=== PATIENT | female | born 1930 | race Caucasian/White ===

== ENCOUNTER 2018-10-25 14:37 | Outpatient (CLI) | payer MEDICARE, BC ==
--- NOTE | 2018-10-25 15:50 | MRI ---
MRI lumbar spine noncontrast HISTORY: Low back pain with left leg radiculopathy. FINDINGS: Conus medullaris has a normal appearance. 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 M ultilevel discogenic endplate changes of the bone marrow. The leftward most sagittal T2 images partially show an oval complex cystic lesion with small smaller cystic component at the superior margin. It appears to be too lateral to represent the urinary bladder and is favored to be an adnexal cystic mass. Degenerative changes of the partially visualized lower thoracic spine including posterior disc bulge at the T11-12 level. T12-L1: Mild disc bulge. Circumferential degenerative changes with mild stenosis of the central canal . Neural foramina are patent. L1-2: Osteophytosis. Central canal and neural foramina are patent. L2-3: Disc space narrowing and degenerative retrolisthesis. Posterior disc bulge and circumferential degenerative changes. Severe stenosis of the central canal. Moderate right and severe left foraminal stenoses. L3-4: Minimal disc bulge. Circumferential degenerative changes. Moderate stenosis of the central lisbeth l. Mild stenosis of each neural foramen. L4-5: Posterior disc bulge and circumferential degenerative changes. Very severe stenosis of the cent ral canal. Severe right and moderate left foraminal stenoses. L5-S1: Disc space narrowing. Minimal disc bulge. Thecal sac is patent. Right posterolateral disc prot rusion compresses the origin of the right S1 nerve root. Moderate stenosis of each neural foramen. 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 Pain management and/or neurosurgical evaluation may be warranted. Partially visualized left pelvic cystic mass. Favored to be adnexal in origin. Please consider gyneco logic consultation.
== END 2018-10-25 14:38 | disposition home or self-care (01) ==
LOC: SCSMRI 14:37
PROVIDERS: ATTEND Family Medicine
DX: M47.26 Other spondylosis with radiculopathy, lumbar region (principal); M51.17 Intervertebral disc disorders with radiculopathy, lumbosacral region; M48.061 Spinal stenosis, lumbar region without neurogenic claudication
CPT/HCPCS: 72148